=== PATIENT | male | born 1955 | race Two or more races ===

== ENCOUNTER → 2018-04-05 10:53 | Outpatient (CLI) | payer OTHER, SELFPAY | PROVIDERS: Referring Provider Physician Assistant; Visit Provider Physician Assistant | DX: C44.319 Basal cell carcinoma of skin of other parts of face (principal); C44.41 Basal cell carcinoma of skin of scalp and neck | CPT/HCPCS: 87070; 87077; 87186; 87205 ==

== ENCOUNTER → 2018-11-12 12:21 | Outpatient (CLI) | payer OTHER, SELFPAY ==
[2018-11-12 14:02] LABS: Hemoglobin A1c 8.8 % (4.2-6.3)
[2018-11-12 14:03] LABS: Vitamin B12 1069 pg/mL (211-911)
[2018-11-12 14:05] LABS: Rheumatoid Factor < 10.0 IU/mL (<15); Thyroid Stim Hormone (TSH) 0.49 uIU/mL (0.358-3.74)
[2018-11-16 16:09] LABS: SJOGREN'S Anti-SS-A test < 0.2 AI (0.0-0.9); SJOGREN'S Anti-SS-B test < 0.2 AI (0.0-0.9)
[2018-11-17 15:44] LABS: Albumin 3.5 g/dL (2.9-4.4); Albumin, Ur 25.9 % (.); Alpha-1-Globulin, Ur 5.3 % (.); Alpha-1-Globulins 0.3 g/dL (0.0-0.4); Alpha-2-Globulins, Ur 16.8 % (.); Beta Globulin, Ur 24.3 % (.); Cytoplasmic Ab (C-ANCA) <1:20 titer (Neg:<1:20); Gamma Globulin 0.5 g/dL (0.4-1.8); Gamma Globulin, Ur 27.8 % (.); Immunoglobulin A 142 mg/dL (61-437); Immunoglobulin G 317 mg/dL (700-1600); Immunoglobulin M 41 mg/dL (20-172); M-Spike, Ur % Not Observed % (Not Observed); PROEL- TOTAL PROTEIN 6.5 g/dL (6.0-8.5)
[2018-11-17 16:28] LABS: ANTINUCLEAR ANTIBODIES DIRECT Negative (Negative)
[2018-11-18 16:56] LABS: Perinuclear Ab (P-ANCA) <1:20 titer (Neg:<1:20); Total Protein, Ur < 4.0 mg/dL (Not Estab.)
== END ==
PROVIDERS: Family Provider Family Medicine; PCP Family Medicine; Referring Provider Psychiatry & Neurology Neurology; Visit Provider Psychiatry & Neurology Neurology
DX: G62.9 Polyneuropathy, unspecified (principal)
CPT/HCPCS: 36415; 82607; 82784; 83036; 84165; 84166; 84443; 86038; 86235; 86256; 86334; 86335; 86431

== ENCOUNTER → 2019-09-14 12:15 | Outpatient (CLI) | payer MEDICARE, OTHER, SELFPAY ==
--- NOTE | 2019-09-14 13:57 | NEURO ---
NCS and/or EMG Patient Report Ordering Doctor: Bridgett Fam DATE OF SERVICE: 09/14/19 Richi Smith is a 64 year old male who presents for electrodiagnostic testing of the lower limbs. He has numbness that extends from the feet to the knees, present for approximately the past 3 to 4 years. He reports a history of diabetes and chemotherapy. Electrodiagnostic findings: Peroneal motor nerve demonstrates prolonged distal latency bilaterally with normal amplitudes and reduced conduction velocities. Tibial motor response on the right side demonstrates normal distal latency with reduced amplitude and conduction velocity. Left tibial response demonstrates prolonged distal latency with reduced amplitude and conduction velocity. Prolonged tibial and peroneal F waves bilaterally prolonged H reflex bilaterally. Prolonged right sural latency. Left sural response is absent. Absent superficial peroneal and plantar responses. On needle EMG, 1+ fibrillations in the right vastus medialis. Motor units of increased amplitude and duration bilaterally in the peroneus longus and gastrocnemius. Electrodiagnostic impression: This is an abnormal study in the lower limbs. 1. 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 2. No electrodiagnostic evidence for lumbar radiculopathy.
== END ==
LOC: PSN 12:16
PROVIDERS: PCP Family Medicine; Referring Provider Registered Nurse; Visit Provider Registered Nurse
DX: G62.9 Polyneuropathy, unspecified (principal); R20.0 Anesthesia of skin
CPT/HCPCS: 95886; 95912